=== PATIENT | male | born 1980 | race Caucasian/White ===

== ENCOUNTER → 2024-12-21 | Outpatient (CLI) | payer MEDICAID ==
--- NOTE | 2024-12-21 08:44 | MR ---
EXAMINATION TYPE: MR Prostate wo/w con DATE OF EXAM: 12/21/2024 COMPARISON: None. INDICATION: Elevated PSA, enlarged prostate. PSA: 3.27 ng/ml on November 21, 2024 Recent Biopsy and Date: None Pathology Report (If Applicable): TECHNIQUE: Examination was performed using a 3T MRI without an endorectal coil. Multiparametric imaging was perf ormed with T2 mutliplanar sequences, axial diffusion weighted imaging and dynamic contrast enhanced i maging, utilizing 8 mL intravenous Gadobutrol gadolinium contrast. FINDINGS: PROSTATE VOLUME: 4.2 cm SI x 3.2 cm AP x 3.6 cm LR Vol= 25.3 cc PSA DENSITY: 0.13 ng/ml/cc Prostate gland is normal in size. Peripheral zone hypertrophy is present. Some wedge-shaped areas of slightly diminished signal on ADC mapping in the bilateral peripheral zone is present. No areas of ma rked diminished signal identified. No areas of suspicious increased signal on diffusion-weighted imag ing. Transitional zone shows heterogeneity without suspicious T2 hypointense areas. Assessment Catego ry:2 Mildly distended bladder. No destructive osseous lesions. IMPRESSION: Normal-sized prostate. A focus of clinically significant cancer is not identified. Highest Assessment Category: 2 MRI Stage: T0 N0 M0 based on review of pelvic images. False negative rates for MRI range from 5-20% depending on risk profile. Assessment Categories: 1 ? Very low (clinically significant cancer is highly unlikely to be present) 2 ? Low (clinically significant cancer is unlikely to be present) 3 ? Intermediate (the presence of clinically significant cancer is equivocal) 4 ? High (clinically significant cancer is likely to be present) 5 ? Very high (clinically significant cancer is highly likely to be present) [facility], , 12/21/2024 8:42 AM
== END | disposition home or self-care (01) ==
LOC: RADMRIMAIN 07:32
PROVIDERS: ATTEND Internal Medicine
DX: R97.20 Elevated prostate specific antigen [PSA] (principal); N40.0 Benign prostatic hyperplasia without lower urinary tract symptoms
CPT/HCPCS: 72197; A9585